=== PATIENT | male | born 1965 | race Caucasian/White ===

== ENCOUNTER 2018-03-23 20:40 | Emergency (ER) | payer OTHER ==
[~2018-03-23] VITALS: Ht 170.2 cm; Wt 85.0 kg
[2018-03-23 23:13] VITALS: BP 127/83
== END 2018-03-23 23:27 | disposition home or self-care (01) ==
LOC: EMS 20:41
DX: S61.218A Laceration without foreign body of other finger without damage to nail, initial encounter (principal); S00.03XA Contusion of scalp, initial encounter; R55 Syncope and collapse; W19.XXXA Unspecified fall, initial encounter; Y93.E8 Activity, other personal hygiene; Y92.091 Bathroom in other non-institutional residence as the place of occurrence of the external cause; Y99.8 Other external cause status
CPT/HCPCS: 99283